=== PATIENT | female | born 1990 | race Two or more races ===

== ENCOUNTER 2020-09-22 04:10 | Emergency (ER) | payer MEDICAID, OTHER ==
[~2020-09-22] VITALS: Ht 170.2 cm; Wt 56.7 kg
[2020-09-22 05:33] LABS: Urine Bacteria FEW /hpf (None Seen); Urine Blood Negative /uL (Negative); Urine Specific Gravity 1.006 (1.001-1.035); Urine WBC 1 /hpf (0 - 5)
[2020-09-22 05:48] LABS: Alcohol, Urine < 3.0 mg/dL (0-10); Amphetamine Screen, Urine POSITIVE (NEGATIVE); Barbiturate Scree,Urine NEGATIVE (NEGATIVE); Benzodiazephine Screen, Urine POSITIVE (NEGATIVE); Cannabinoid Screen, Urine NEGATIVE (NEGATIVE); Cocaine Screen, Urine NEGATIVE (NEGATIVE); Opiate Scree,Urine NEGATIVE (NEGATIVE); Phencyclidine Screen, Urine NEGATIVE (NEGATIVE)
[2020-09-22 07:25] VITALS: BP 112/68
== END 2020-09-22 07:42 | disposition home or self-care (01) ==
LOC: EDBD 04:10 → ER 04:10
DX: I47.1 Supraventricular tachycardia (principal); R07.89 Other chest pain; F15.10 Other stimulant abuse, uncomplicated; Z32.02 Encounter for pregnancy test, result negative
CPT/HCPCS: 36415; 71045; 80307; 81001; 81025; 85025; 93005